=== PATIENT | male | born 1970 | race Caucasian/White ===

== ENCOUNTER 2017-08-01 10:54 | Emergency (ER) | payer OTHER ==
[~2017-08-01] VITALS: Ht 185.4 cm; Wt 79.4 kg
[2017-08-01 11:03] VITALS: TEMP 36.7; Ht 185.4 cm; Wt 79.4 kg
--- NOTE | 2017-08-01 12:33 | DIAGNOSTIC IMAGING REPORT ---
AP PELVIS, AP AND LATERAL VIEWS RIGHT HIP HISTORY: RIGHT HIP PAIN AFTER INJURY COMPARISON: None. FINDINGS: No fracture or dislocation within the pelvis or hips. The sacrum appears intact. Cartilage spaces are maintained for age. Question of a subtle step-off within the right medial superior pubic ramus is likely due to overlapping soft tissue. Soft tissues are unremarkable. No radiopaque foreign bodies. IMPRESSION: No fracture or dislocation within the pelvis or hips. Electronically signed by: Ceasar Rehman M.D. 08/01/2017 12:32 PM Dictated Date/Time: 08/01/2017 12:28 PM
--- NOTE | 2017-08-01 12:39 | EMERGENCY ROOM VISIT NOTE ---
ED Visit Note First contact with patient: 11:11 CHIEF COMPLAINT: Right groin pain 1 week HISTORY OF PRESENT ILLNESS: Patient is a 46-year-old male who presents emergency department for evaluation of right hip and groin pain. He states that he landed awkwardly when he missed a step. He states he was walking home from work, when he tripped and jammed the right leg and hip. He complains of pain in the right groin that radiates around to the posterior thigh. Injury occurred about a week ago. He has been taking Tylenol which did not help, so he stopped this a few days ago. He had to start walking with a cane due to his symptoms. Presently rates his pain a 10/10. Pain is worse with certain movements. He feels better with the hip flexed, and worse when the hip is extended. He denies any radiation of the pain to his back or down his leg. He reports that he has been unable to work for the last couple of days due to his pain, and is here for evaluation and a work note. He denies any numbness, tingling or weakness. No radiation into the testicles or the groin. REVIEW OF SYSTEMS: Review of systems as per HPI. All other systems reviewed were negative. 10 systems reviewed. PMH: Electronic medical records are reviewed and summarized as above/below. See Problem List. SOCIAL HISTORY: Patient lives at home. Employed. Smoker. PHYSICAL EXAM: Vital Signs: Reviewed Nurse's notes. CONSTITUTIONAL: Patient is a well-appearing 46-year-old white male who is awake and alert and in no acute distress. MUSCULOSKELETAL: Examination of the lower extremities bilaterally do not note any leg length discrepancy. Examination of the right hip and upper leg does not demonstrate any obvious deformity. Skin is intact without any ecchymosis, no erythema or soft tissue swelling. Patient is globally tender to palpation over the entire right hip, he has pain over the lateral aspect over the greater trochanter, in the right groin, and posteriorly near the hamstring insertion on ischial tuberosity. Muscle bellies are soft. No inguinal masses are appreciated. Femoral pulses are easily palpable. The patient is able to stand and bear weight on the right leg, ambulates with an antalgic gait using his cane. He has full passive internal and external rotation and flexion and extension. He has pain in the right groin with both passive and active abduction and abduction, and pain with active internal and external rotation. NECK: Supple, non-tender. NEUROLOGICAL: Alert and cooperative. Sensory and motor functions grossly intact. He is able to sit on the edge of the bed and lift his right leg into the bed to lay supine without difficulty. The right lower extremity is neurovascularly intact. EMERGENCY DEPARTMENT COURSE: The patient was seen and assessed as above. He presents the emergency department with right hip pain after an injury that occurred about a week ago. He is concerned because he is not improving. X- rays of the right hip and pelvis were obtained and were negative for acute fracture, dislocation or bony abnormality. I suspect his injury is more muscular or ligamentous in nature, particularly given the reproducible symptoms over the adductor muscles in the right groin. Differential diagnoses also entertained included hip versus pelvic fracture, sprain, contusion, among others. The patient was encouraged to apply heat, take an anti-inflammatory medicine and can continue to use his cane as needed. He was encouraged to follow-up with orthopedics or his family physician if his symptoms are not improving. Medication reconciliation: I attest that I have personally reviewed the patient' s current medication list. Blood pressure screening: Patient was found to have a slightly elevated blood pressure due to circumstances. I do not believe that the patient requires hypertension monitoring. AP PELVIS, AP AND LATERAL VIEWS RIGHT HIP HISTORY: RIGHT HIP PAIN AFTER INJURY COMPARISON: None. FINDINGS: No fracture or dislocation within the pelvis or hips. The sacrum appears intact. Cartilage spaces are maintained for age. Question of a subtle step-off within the right medial superior pubic ramus is likely due to overlapping soft tissue. Soft tissues are unremarkable. No radiopaque foreign bodies. IMPRESSION: No fracture or dislocation within the pelvis or hips. Current/Historical Medications No Active Prescriptions or Reported Meds Allergies Coded Allergies: No Known Allergies (Unverified , 08/01/17) Vital Signs Date Time Temp Pulse Resp B/P (MAP) Pulse Ox O2 Delivery O2 Flow Rate FiO2 08/01/17 12:53 78 20 148/86 98 08/01/17 11:03 36.7 80 20 143/79 98 Room Air Departure Information Impression Primary Impression: Inguinal muscle strain Prescriptions No Active Prescriptions or Reported Meds Referrals No Doctor, Assigned (PCP) Patient Instructions My [facility] Additional Instructions Ibuprofen(Motrin, Advil) may be used for fever or pain. Use 600mg every six hours as needed. Take with food. Avoid using more than 2400mg in a 24 hour period. Do not use 2400mg per day for more than three consecutive days without physician direction. Prolonged inappropriate use can lead to stomach upset or ulcers. This medication can be taken if you need to drive, work, or perform activities which may be dangerous when taking narcotic pain medication. (AND/OR) Acetaminophen(Tylenol) may be used for fever or pain. Use 1000mg every six hours as needed. Avoid using more than 3000mg in a 24 hour period. This medication can be taken if you need to drive, work, or perform activities which may be dangerous when taking narcotic pain medication. Moist heat compresses for 20 minutes at a time four times daily for 2-3 days. Continue your cane as needed. Rest and elevate your injury. Continue current medications. Return to the ER immediately for any numbness, tingling, severe pain, extreme swelling in the extremity or as needed. Follow up with your family physician or with orthopedic surgery if your symptoms are not improving.
[2017-08-01 12:53] VITALS: BP 148/86; PULSE 78; O2SAT 98
== END 2017-08-01 12:54 | disposition home or self-care (01) ==
LOC: C.EDB 10:57 → C.EDD 12:54
DX: S76.811A Strain of other specified muscles, fascia and tendons at thigh level, right thigh, initial encounter (principal); W18.43XA Slipping, tripping and stumbling without falling due to stepping from one level to another, initial encounter; Y93.01 Activity, walking, marching and hiking; Y99.8 Other external cause status; F17.200 Nicotine dependence, unspecified, uncomplicated